=== PATIENT | female | born 1990 | race African-American/Black ===

== ENCOUNTER 2017-02-26 15:00 | Emergency (ER) | payer OTHER ==
[~2017-02-26] VITALS: Ht 167.6 cm; Wt 62.3 kg
[~2017-02-26 15:00] MED LIST: BACTRIM,SEPT1 TABLET PO; BENZAMYCIN GE46.6 GM TP; CLEOCIN150 MG PO; CLEOCIN300 MG PO; NAPROSYN500 MG PO; NOHOMEMEDS; POLYTRIM EYE DR10 ML BOTH EYES; RETIN-A 0.1%20 GM PO; ULTRAM50 MG PO
[2017-02-26 15:27] VITALS: BP 114/73
[2017-02-26] MEDS ORDERED: MOTRIN600 MG PO (17:31)
== END 2017-02-26 17:49 | disposition home or self-care (01) ==
LOC: EME 15:00
DX: J02.9 Acute pharyngitis, unspecified (principal); B34.9 Viral infection, unspecified; Z88.0 Allergy status to penicillin
CPT/HCPCS: 87651 90; 99281; 99284